=== PATIENT | male | born 1945 | race American Indian/Alaskan Native ===

== ENCOUNTER 2018-12-13 05:03 | Inpatient (IN) | payer MEDICARE, OTHER ==
--- NOTE | 2018-12-13 05:35 | Event Note ---
Date: 12/13/18 Medical screening examination: 73-year-old gentleman, presenting with slurred speech and facial droop for 2 days. Walks with a steady gait. Makes no complaint of pain. Accu-Chek appropriate. Patient was worked up according to stroke protocol. CT scan, laboratory studies, EKG ordered. Vital Signs 12/13/18 12/13/18 05:06 05:25 Temperature 98 F Pulse Rate 78 83 Respiratory 18 18 Rate Blood Pressure 168/98 Blood Pressure 167/98 [Left] O2 Sat by Pulse 97 99 Oximetry
[2018-12-13 05:46] LABS: Basophils % (Auto) 0.8 % (0.0-1.8); Eosinophils # (Auto) 0.2 K/mm3 (0.0-0.4); Eosinophils % (Auto) 3.1 % (0.0-4.3); Hematocrit 42.1 % (35.5-45.6); Hemoglobin 13.9 gm/dl (11.8-15.2); Lymphocytes # (Auto) 1.4 K/mm3 (1.2-5.4); Lymphocytes % (Auto) 25.4 % (13.4-35.0); Mean Corpuscular HGB Conc 33 % (32-34); Mean Corpuscular Volume 81 fl (84-94); Monocytes # (Auto) 0.5 K/mm3 (0.0-0.8); Monocytes % (Auto) 10.2 % (0.0-7.3); Platelet Count 164 K/mm3 (140-440); Red Cell Distribution Width 15.4 % (13.2-15.2)
[2018-12-13 05:57] LABS: INR 0.93 (0.87-1.13)
[2018-12-13 05:58] LABS: BUN/Creatinine Ratio 14; Blood Urea Nitrogen 15 mg/dL (9-20); Calcium 9.2 mg/dL (8.4-10.2); Hemolysis Index 3; Partial Thromboplastin Time 26.5 Sec. (24.2-36.6)
--- NOTE | 2018-12-13 06:33 | Cat Scan Report ---
CT head/brain wo con INDICATION / CLINICAL INFORMATION: neuro deficits <6hrs or sx present upon awakening. TECHNIQUE: All CT scans at this location are performed using CT dose reduction for ALARA by means of automated e xposure control. COMPARISON: None available. FINDINGS: No acute intracranial hemorrhage. A poorly defined low-density areas seen in the left basal ganglia. No associated mass effect. A small well-defined low-density area is seen in the right caudate nucleus. The ventricular system and basilar cisterns are normal. No finding to suggest territorial infarction. A retention cyst is seen in the floor the right maxillary sinus and there is a opacification of the r ight side of the sphenoid sinus. No osseous abnormality. IMPRESSION: 1. Left basal ganglial-hypoattenuation is consistent with age indeterminate ischemia. 2. Small lacunar infarction in the right caudate nucleus. 3. Right maxillary and sphenoid sinus disease. Signer Name: Travis Norris MD Signed: 12/13/2018 6:29 AM Workstation Name: [id number]
--- NOTE | 2018-12-13 07:06 | Emergency Department Report ---
ED Neuro Deficit HPI - General Chief Complaint: Neuro Symptoms/Deficit Stated Complaint: SLURRED SPEECH WEAKNESS Time Seen by Provider: 12/13/18 06:56 Source: patient Mode of arrival: Ambulatory Limitations: No Limitations - History of Present Illness Initial Comments: Patient is 73 years old male with history of hypertension. Patient brought to the emergency room by his family for evaluation of slurred speech and left facial droop for the last 2 days. Family stated that when they came back from [place] they noticed that his speech is not clear at and to somewhat slurred and they also noticed a facial droop on the left side. Patient is alert, oriented 3 in no acute distress. Patient denied any headache, weakness, numbness or tingling sensation. He admitted that he feel that his speech is not normal. Patient denied any chest pain, shortness of breath, abdominal pain, nausea or vomiting. -: days(s) (2) Location: speech, left face Presenting Symptoms: Present: Facial Droop/Numbness, Unable to Speak Clearly History of same: No Place: home Severity: mild Context: sudden onset Associated Symptoms: denies other symptoms Treatments Prior to Arrival: none - Related Data Allergies/Adverse Reactions: Allergies Allergy/AdvReac Type Severity Reaction Status Date / Time Penicillins Allergy Shortness Unverified 10/03/15 06:50 of Breath ED Review of Systems ROS: Stated complaint: SLURRED SPEECH WEAKNESS Other details as noted in HPI Comment: All other systems reviewed and negative Constitutional: denies: chills, fever Respiratory: denies: cough Cardiovascular: denies: chest pain, palpitations Gastrointestinal: denies: abdominal pain, nausea, vomiting Musculoskeletal: denies: back pain Neurological: denies: headache, weakness, numbness, paresthesias, confusion, abnormal gait ED Past Medical Hx - Past Medical History Previous Medical History?: Yes Hx Hypertension: Yes - Surgical History Past Surgical History?: Yes Additional Surgical History: back surgery - Social History Smoking Status: Current Every Day Smoker ED Neuro Physical Exam - General Limitations: No Limitations General appearance: alert, in no apparent distress Suspected Stroke: Yes - Head Head exam: Present: atraumatic, normocephalic, normal inspection - Eye Eye exam: Present: normal appearance - ENT ENT exam: Present: normal exam, normal orophraynx, mucous membranes moist - Neck Neck exam: Present: normal inspection, full ROM. Absent: tenderness, meningismus, lymphadenopathy, thyromegaly - Respiratory Respiratory exam: Present: normal lung sounds bilaterally - Cardiovascular Cardiovascular Exam: Present: regular rate, normal rhythm, normal heart sounds - GI/Abdominal GI/Abdominal exam: Present: soft, normal bowel sounds. Absent: distended, tenderness, guarding, rebound, rigid - Extremities Exam Extremities exam: Present: normal inspection, full ROM, normal capillary refill - Back Exam Back exam: Present: normal inspection, full ROM. Absent: CVA tenderness (R), CVA tenderness (L), muscle spasm, paraspinal tenderness, vertebral tenderness - Neurological Exam Neurological exam: Present: alert, oriented X3, normal gait, reflexes normal. Absent: abnormal gait, motor sensory deficit - NIHSS Assessment Interval: Baseline 1a. Level of Consciousness: alert/keenly responsive 1b. LOC Questions: answers both correctly 1c. LOC Commands: performs tasks correctly 2. Best Gaze: normal 3. Visual: no visual loss 4. Facial Palsy: minor paralysis 5b. Motor Arm Right: no drift 5a. Motor Arm Left: no drift 6a. Motor Leg Left: no drift 6b. Motor Leg Right: no drift 7. Limb Ataxia: absent 8. Sensory: normal 9. Best Language: mild/moderate aphasia 10. Dysarthria: mild/moderate dysarthria 11. Extinction/Inattention: no abnormality Total Score: 3 Stroke Severity: Minor Stroke - Psychiatric Psychiatric exam: Present: normal mood - Skin Skin exam: Present: warm, intact, normal color ED Course Vital Signs 12/13/18 12/13/18 12/13/18 05:06 05:08 05:25 Temperature 98 F 98.0 F Pulse Rate 78 78 83 Respiratory 18 18 18 Rate Blood Pressure 168/98 168/98 Blood Pressure 167/98 [Left] O2 Sat by Pulse 97 97 99 Oximetry 12/13/18 12/13/18 12/13/18 05:30 06:00 06:15 Temperature Pulse Rate 76 71 74 Respiratory 17 20 20 Rate Blood Pressure 167/98 139/78 147/86 Blood Pressure [Left] O2 Sat by Pulse 99 99 96 Oximetry 12/13/18 07:10 Temperature Pulse Rate 71 Respiratory 16 Rate Blood Pressure Blood Pressure 134/73 [Left] O2 Sat by Pulse 97 Oximetry - Lab Data Result diagrams: 12/13/18 05:34 12/13/18 05:34 Lab Results 12/13/18 12/13/18 12/13/18 Range/Units 05:19 05:34 05:34 WBC 5.4 (4.5-11.0) K/mm3 RBC 5.20 H (3.65-5.03) M/mm3 Hgb 13.9 (11.8-15.2) gm/dl Hct 42.1 (35.5-45.6) % MCV 81 L (84-94) fl MCH 27 L (28-32) pg MCHC 33 (32-34) % RDW 15.4 H (13.2-15.2) % Plt Count 164 (140-440) K/mm3 Lymph % (Auto) 25.4 (13.4-35.0) % Clay % (Auto) 10.2 H (0.0-7.3) % Eos % (Auto) 3.1 (0.0-4.3) % Baso % (Auto) 0.8 (0.0-1.8) % Lymph # 1.4 (1.2-5.4) K/mm3 Clay # 0.5 (0.0-0.8) K/mm3 Eos # 0.2 (0.0-0.4) K/mm3 Baso # 0.0 (0.0-0.1) K/mm3 Seg Neutrophils % 60.5 (40.0-70.0) % Seg Neutrophils # 3.2 (1.8-7.7) K/mm3 PT 12.2 (12.2-14.9) Sec. INR 0.93 (0.87-1.13) APTT 26.5 (24.2-36.6) Sec. Thrombin Time (15.1-19.6) Sec. Sodium (137-145) mmol/L Potassium (3.6-5.0) mmol/L Chloride (98-107) mmol/L Carbon Dioxide (22-30) mmol/L Anion Gap mmol/L BUN (9-20) mg/dL Creatinine (0.8-1.5) mg/dL Estimated GFR ml/min BUN/Creatinine Ratio % Glucose (75-100) mg/dL POC Glucose 98 (70-105) Calcium (8.4-10.2) mg/dL Troponin T (0.00-0.029) ng/mL 12/13/18 12/13/18 Range/Units 05:34 05:34 WBC (4.5-11.0) K/mm3 RBC (3.65-5.03) M/mm3 Hgb (11.8-15.2) gm/dl Hct (35.5-45.6) % MCV (84-94) fl MCH (28-32) pg MCHC (32-34) % RDW (13.2-15.2) % Plt Count (140-440) K/mm3 Lymph % (Auto) (13.4-35.0) % Clay % (Auto) (0.0-7.3) % Eos % (Auto) (0.0-4.3) % Baso % (Auto) (0.0-1.8) % Lymph # (1.2-5.4) K/mm3 Clay # (0.0-0.8) K/mm3 Eos # (0.0-0.4) K/mm3 Baso # (0.0-0.1) K/mm3 Seg Neutrophils % (40.0-70.0) % Seg Neutrophils # (1.8-7.7) K/mm3 PT (12.2-14.9) Sec. INR (0.87-1.13) APTT (24.2-36.6) Sec. Thrombin Time 16.9 (15.1-19.6) Sec. Sodium 141 (137-145) mmol/L Potassium 3.6 (3.6-5.0) mmol/L Chloride 106.7 (98-107) mmol/L Carbon Dioxide 22 (22-30) mmol/L Anion Gap 16 mmol/L BUN 15 (9-20) mg/dL Creatinine 1.1 (0.8-1.5) mg/dL Estimated GFR > 60 ml/min BUN/Creatinine Ratio 14 % Glucose 109 H (75-100) mg/dL POC Glucose (70-105) Calcium 9.2 (8.4-10.2) mg/dL Troponin T < 0.010 (0.00-0.029) ng/mL - EKG Data -: EKG Interpreted by Ca EKG shows normal: sinus rhythm Rate: normal Interpretation: no acute changes - Radiology Data Radiology results: report reviewed - Medical Decision Making Patient is 73 years old male with history of hypertension. Patient brought to the emergency room by his family for evaluation of slurred speech and left facial droop for the last 2 days. Family stated that when they came back from [place] they noticed that his speech is not clear at and to somewhat slurred and they also noticed a facial droop on the left side. Patient is alert, oriented 3 in no acute distress. Patient denied any headache, weakness, numbness or tingling sensation. He admitted that he feel that his speech is not normal. Patient denied any chest pain, shortness of breath, abdominal pain, nausea or vomiting. CT brain showed no acute finding. EKG is sinus rhythm. Labs reviewed that is unremarkable. Unfortunately patient missed a TPA since he presented after 2 days. I discussed the patient with Dr. Kelley, he agreed to admit the patient to medical service for further management. Critical Care Time: Yes Critical care time in (mins) excluding proc time.: 30 Critical care attestation.: If time is entered above; I have spent that time in minutes in the direct care of this critically ill patient, excluding procedure time. ED Disposition Clinical Impression: CVA (cerebral vascular accident) Disposition: DC-09 OP ADMIT IP TO THIS HOSP Is pt being admited?: Yes Condition: Stable Referrals: PRIMARY CARE, [Primary Care Provider] - 3-5 Days
[2018-12-13] MEDS ORDERED: SENOKOT PO PRN (08:17)
[2018-12-13] MEDS ORDERED: PROVENTIL IH PRN (08:17)
[2018-12-13] MEDS ORDERED: MILK OF MAGNESIA PO PRN (08:17)
[2018-12-13] MEDS ORDERED: SODIUM CHLORIDE FLUSH SYRINGE 10 ML IV PRN ×2 (08:17)
[2018-12-13] MEDS ORDERED: REGLAN PO PRN (08:17)
[2018-12-13] MEDS ORDERED: ZOFRAN IV PRN ×2 (08:17)
[2018-12-13] MEDS ORDERED: DULCOLAX PR PRN (08:17)
[2018-12-13] MEDS ORDERED: TYLENOL PO PRN ×2 (08:17)
[2018-12-13] MEDS ORDERED: PHENERGAN PR PRN (08:17)
--- NOTE | 2018-12-13 08:17 | History and Physical Report ---
History of Present Illness Date of examination: 12/13/18 Date of admission: 12/13/18 Chief complaint: slurred speech with left facail droop for 2 days History of present illness: Patient is a 73-year-old male with past medical history of hypertension, tobacco dependence, hyperlipidemia on daily aspirin who presents to the ED with complaints of slurred speech and left facial droop for about 2 days. The family brought the patient and reports that they had traveled for the weekend and on return from [place] noted that the patient's speech was not clear somewhat slurred and had a facial droop to the left side. The patient reports that he woke up on Tuesday morning with this symptom and I went back to sleep thinking that it will go away but he persisted. Heunsure why he did not call emergency services or any family member. He denies any chest pain, nausea, vomiting, dizziness, seizures. Past History Past Medical History: hypertension, hyperlipidemia Past Surgical History: Other (BACK SURGERY) Social history: smoking, full code. denies: alcohol abuse Family history: no significant family history Medications and Allergies Allergies Allergy/AdvReac Type Severity Reaction Status Date / Time Penicillins Allergy Shortness Verified 12/13/18 08:29 of Breath Home Medications Medication Instructions Recorded Confirmed Last Taken Type Aspirin BABY CHEW TAB 81 mg PO ONCE 12/13/18 12/13/18 12/12/18 History 81 mg Lipitor 40 mg PO ONCE 12/13/18 12/13/18 12/12/18 History 40 mg amLODIPine 10 mg PO ONCE 12/13/18 12/13/18 12/12/18 History 10 mg Review of Systems All systems: negative Constitutional: weakness, no weight loss, no weight gain, no fever, no chills, no sweats, no night sweats, no anorexia, no fatigue, no malaise, no lethargy, no chronic headaches, no poor appetite, no daytime sleepiness, no chronic pain Cardiovascular: no chest pain, no orthopnea, no palpitations, no rapid/irregular heart beat, no edema, no syncope, no lightheadedness, no shortness of breath Respiratory: no cough, no cough with sputum, no excessive sputum, no hemoptysis, no shortness of breath, no dyspnea on exertion Gastrointestinal: no abdominal pain, no nausea, no vomiting, no diarrhea, no constipation, no change in bowel habits, no hematemesis, no hematochezia, no early satiety Musculoskeletal: muscle weakness (RIGHT SIDE), muscle cramps, no neck pain, no shooting arm pain, no arm numbness/tingling, no leg numbness/tingling, no gait dysfunction Integumentary: no rash, no pruritis, no redness, no sores, no jaundice Neurological: weakness (LEFT FACIAL DROOP), aphasia, change in speech, gait dysfunction, sensory deficit, no paralysis, no parathesias, no numbness, no tingling, no seizures, no change in mentation, no confusion, no memory loss, no changes in smell/taste, no double vision, no loss of vision, no hearing difficulties Exam - Physical Exam Narrative exam: VITAL SIGNS: Reviewed. GENERAL: The patient appears normally developed, Vital signs as documented. HEAD: No signs of head trauma. EYES: Pupils are equal. Extraocular motions intact. EARS: Hearing grossly intact. MOUTH: Oropharynx is normal. left facial droop NECK: No adenopathy, no JVD. CHEST: Chest with clear breath sounds bilaterally. No wheezes, rales, or rhonchi. CARDIAC: Regular rate and rhythm. S1 and S2, without murmurs, gallops, or rubs . VASCULAR: No Edema. Peripheral pulses normal and equal in all extremities. ABDOMEN: Soft, non tender and non distended. No rebound or guarding, and no masses palpated. Bowel Sounds normal. MUSCULOSKELETAL: Good range of motion of all major joints. Extremities without clubbing, cyanosis or edema. NEUROLOGIC EXAM: Alert and oriented x 3 Slurred speech, left facial droop, no motor strenght deficit noted. Speech normal. Follows commands. PSYCHIATRIC: Mood normal. SKIN: detail exam as documented in skin assessment - Constitutional Vitals: Temp Pulse Resp BP Pulse Ox 98.0 F 71 16 134/73 97 12/13/18 05:08 12/13/18 07:10 12/13/18 07:10 12/13/18 07:10 12/13/18 07:10 Results - Labs CBC & Chem 7: 12/13/18 05:34 12/13/18 05:34 Labs: Laboratory Last Values WBC 5.4 K/mm3 (4.5-11.0) 12/13/18 05:34 RBC 5.20 M/mm3 (3.65-5.03) H 12/13/18 05:34 Hgb 13.9 gm/dl (11.8-15.2) 12/13/18 05:34 Hct 42.1 % (35.5-45.6) 12/13/18 05:34 MCV 81 fl (84-94) L 12/13/18 05:34 MCH 27 pg (28-32) L 12/13/18 05:34 MCHC 33 % (32-34) 12/13/18 05:34 RDW 15.4 % (13.2-15.2) H 12/13/18 05:34 Plt Count 164 K/mm3 (140-440) 12/13/18 05:34 Lymph % (Auto) 25.4 % (13.4-35.0) 12/13/18 05:34 Swain % (Auto) 10.2 % (0.0-7.3) H 12/13/18 05:34 Eos % (Auto) 3.1 % (0.0-4.3) 12/13/18 05:34 Baso % (Auto) 0.8 % (0.0-1.8) 12/13/18 05:34 Lymph # 1.4 K/mm3 (1.2-5.4) 12/13/18 05:34 Swain # 0.5 K/mm3 (0.0-0.8) 12/13/18 05:34 Eos # 0.2 K/mm3 (0.0-0.4) 12/13/18 05:34 Baso # 0.0 K/mm3 (0.0-0.1) 12/13/18 05:34 Seg Neutrophils % 60.5 % (40.0-70.0) 12/13/18 05:34 Seg Neutrophils # 3.2 K/mm3 (1.8-7.7) 12/13/18 05:34 PT 12.2 Sec. (12.2-14.9) 12/13/18 05:34 INR 0.93 (0.87-1.13) 12/13/18 05:34 APTT 26.5 Sec. (24.2-36.6) 12/13/18 05:34 Thrombin Time 16.9 Sec. (15.1-19.6) 12/13/18 05:34 Sodium 141 mmol/L (137-145) 12/13/18 05:34 Potassium 3.6 mmol/L (3.6-5.0) 12/13/18 05:34 Chloride 106.7 mmol/L (98-107) 12/13/18 05:34 Carbon Dioxide 22 mmol/L (22-30) 12/13/18 05:34 Anion Gap 16 mmol/L 12/13/18 05:34 BUN 15 mg/dL (9-20) 12/13/18 05:34 Creatinine 1.1 mg/dL (0.8-1.5) 12/13/18 05:34 Estimated GFR > 60 ml/min 12/13/18 05:34 BUN/Creatinine Ratio 14 % 12/13/18 05:34 Glucose 109 mg/dL (75-100) H 12/13/18 05:34 POC Glucose 98 (70-105) 12/13/18 05:19 Calcium 9.2 mg/dL (8.4-10.2) 12/13/18 05:34 Troponin T < 0.010 ng/mL (0.00-0.029) 12/13/18 05:34 Assessment and Plan Assessment and plan: Patient is a 73-year-old male with past medical history of hypertension, tobacco dependence, hyperlipidemia on daily aspirin who presents to the ED with complaints of slurred speech and left facial droop for about 2 days. The family brought the patient and reports that they had traveled for the weekend and on return from [place] noted that the patient's speech was not clear somewhat slurred and had a facial droop to the left side. The patient reports that he woke up on Tuesday morning with this symptom and I went back to sleep thinking that it will go away but he persisted. Heunsure why he did not call emergency services or any family member. He denies any chest pain, nausea, vomiting, dizziness, seizures. * CT brain showed no acute finding but lacunar infarct noted, unknown chronicity. EKG is sinus rhythm. * Unfortunately patient missed a TPA since he presented after 2 days. Acute CVA HTN Hyperlipidemia Tobacco dependance Obese Plan Admit to Telemetry Neurology consult Extensive counselling on tobacco cessation provided to the patient Speech, PT/OT consult Continue Full dose ASA, Statin, BP control DVT/GI Prophy Discussed with patient and family Advance Directives: Yes Plan of care discussed with patient/family: Yes
[2018-12-13] MEDS ORDERED: ASPIRIN PO SCH (10:00)
[2018-12-13] MEDS: SODIUM CHLORIDE FLUSH SYRINGE 10 ML IV SCH ×2 (10:13→22:06)
--- NOTE | 2018-12-13 10:20 | Cat Scan Report ---
CTA head with and without IV contrast. CLINICAL HISTORY: Cerebrovascular accident. Technique: Multiple contiguous postcontrast CT images of the head were obtained at 0.63 mm intervals. 3 plane MIP reconstructions were obtained. Precontrast localizing images were also performed. CT scan s at this location are performed using the CT dose reduction for ALATechgenia by means of automated exposure control. FINDINGS: The intracranial vessels demonstrate appropriate caliber without significant focal stenosis by NASCET criteria. There is no CTA evidence of intracranial aneurysm. The dural venous sinuses opac kaelyn with contrast. There is a focus of decreased attenuation projected along the left palmer radiata indicative of ische mack process of indeterminate age. There is prominent mucosal thickening within the right sphenoid sin us. There is also mild mucosal thickening along the visualized inferior left maxillary sinus. A reten tion cyst is noted within the right maxillary sinus. IMPRESSION: There is no significant focal stenosis involving intracranial vessels at. Signer Name: Jefferson Puga MD Signed: 12/13/2018 10:15 AM Workstation Name: [id number]
--- NOTE | 2018-12-13 10:41 | Cat Scan Report ---
CTA neck with and without contrast CLINICAL HISTORY: Cerebrovascular accident. Technique: Multiple contiguous postcontrast axial CT images of the neck were obtained at 0.63 mm inte rvals. 3 plane MIP reconstructions were produced. Precontrast localizing images were also performed. All CT scans at this location are performed using the CT dose reduction for ALARA by means of automat ed exposure control. There was some technical delay in processing of these images. FINDINGS: The carotid bifurcations are widely patent at. The somewhat symmetric linear decreased atte nuation projected along the proximal carotid bulbs is felt to reflect motion artifact in turbulent fl ow. The findings are not clearly a seen on the reconstructed images at. The cervical internal carotid arteries also demonstrate appropriate caliber without significant focal narrowing. The vertebral arteries also reveal appropriate caliber without second focal stenosis at. The left sofia tebral artery is dominant. There is beam hardening related to the adjacent dense contrast within the venous structures. However, there is no clear evidence of significant stenosis involving the arch of vessels. There are fibrotic changes within the visualized lung apices bilaterally. IMPRESSION: There is no significant stenosis involving cervical carotid or vertebral arteries by NASCET criteria. Signer Name: Jefferson Puga MD Signed: 12/13/2018 10:36 AM Workstation Name: [id number]
[2018-12-13] MEDS: HEPARIN SUB-Q SCH ×2 (13:37→22:06)
[2018-12-13] MEDS ORDERED: ATIVAN IV NR (14:45)
--- NOTE | 2018-12-13 18:01 | Consultation ---
History of Present Illness Consult date: 12/13/18 Chief complaint: left sided weakness History of present illness: This is a 73 YO M who presented to the ED with left sided weakness. PT takes aspirin daily, reports compliance. Also had some slurred speech. Seems to be back to normal. Past History Past Medical History: hypertension, hyperlipidemia Past Surgical History: Other (BACK SURGERY) Social history: smoking, full code. denies: alcohol abuse Family history: no significant family history Medications and Allergies Allergies Allergy/AdvReac Type Severity Reaction Status Date / Time Penicillins Allergy Shortness Verified 12/13/18 08:29 of Breath Home Medications Medication Instructions Recorded Confirmed Last Taken Type Aspirin BABY CHEW TAB 81 mg PO ONCE 12/13/18 12/13/18 12/12/18 History 81 mg Lipitor 40 mg PO ONCE 12/13/18 12/13/18 12/12/18 History 40 mg amLODIPine 10 mg PO ONCE 12/13/18 12/13/18 12/12/18 History 10 mg Active Meds: Active Medications Acetaminophen (Tylenol) 650 mg PO Q4H PRN PRN Reason: Pain MILD(1-3)/Fever >100.5/CAGLE Albuterol (Proventil) 2.5 mg IH Q3HRT PRN PRN Reason: Shortness Of Breath Aspirin (Aspirin) 325 mg PO QDAY [facility] Last Admin: 12/13/18 10:13 Dose: 325 mg Documented by: Atorvastatin Calcium (Lipitor) 40 mg PO QHS JESUS Bisacodyl (Dulcolax) 10 mg MI QDAY PRN PRN Reason: Constipation Heparin Sodium (Porcine) (Heparin) 5,000 unit SUB-Q Q8HR [facility] Last Admin: 12/13/18 13:37 Dose: 5,000 unit Documented by: Lorazepam (Ativan) 2 mg IV [employer] NR Stop: 12/13/18 23:59 Last Admin: 12/13/18 17:43 Dose: 2 mg Documented by: Magnesium Hydroxide (Milk Of Magnesia) 30 ml PO Q4H PRN PRN Reason: Constipation Metoclopramide HCl (Reglan) 10 mg PO Q6H PRN PRN Reason: Nausea And Vomiting Ondansetron HCl (Zofran) 4 mg IV Q8H PRN PRN Reason: Nausea And Vomiting Promethazine HCl (Phenergan) 25 mg MI Q6H PRN PRN Reason: Nausea And Vomiting Senna (Senokot) 8.6 mg PO Q12H PRN PRN Reason: Laxative Effect Sodium Chloride (Sodium Chloride Flush Syringe 10 Ml) 10 ml IV PRN PRN PRN Reason: LINE FLUSH Sodium Chloride (Sodium Chloride Flush Syringe 10 Ml) 10 ml IV BID JESUS Last Admin: 12/13/18 10:13 Dose: 10 ml Documented by: Review of Systems Neurological: weakness, change in speech Physical Examination - Vital Signs Vital Signs: Vital Signs Temp Pulse Resp BP Pulse Ox 98 F 78 18 168/98 97 12/13/18 05:06 12/13/18 05:06 12/13/18 05:06 12/13/18 05:06 12/13/18 05:06 - Constitutional General appearance: comfortable - EENT EENT: Present: PERRL - Respiratory Respiratory: Present: lungs clear - Cardiovascular Cardiovascular: Present: regular rate - Gastrointestinal Gastrointestinal: Present: normoactive bowel sounds - Integumentary Integumentary: Present: normal - Neurologic Cranial nerve examination: PERRL, face symmetric, tongue midline Speech examination: intact Sensorimotor examination: intact Detailed motor examination: grossly full strength in Reflex and gait examination: intact Reflexes: 1+: ankle, bicep, knee, tricep - Psychiatric Psychiatric: Present: mood/affect appropriate Results - Laboratory Findings CBC and BMP: 12/13/18 05:34 12/13/18 05:34 Abnormal Lab Findings: Abnormal Labs 12/13/18 12/13/18 05:34 05:34 RBC 5.20 H MCV 81 L MCH 27 L RDW 15.4 H Jennings % (Auto) 10.2 H Glucose 109 H - Diagnostic Findings Additional findings: CT head nothing acute Assessment and Plan This is a 73 YO M with slurred speech and left sided weakness, appears to be at baseline.' REcommend: MRI/A echo and carotids PT/OT/ST plavix and statin LDL and A1C Continue care for all medical issues as you are doing
--- NOTE | 2018-12-13 20:48 | Magnetic Resonance Report ---
Nonenhanced MR scan of the brain: INDICATION / CLINICAL INFORMATION: stroke. TECHNIQUE: Multiplanar, multisequence MR images of the brain were obtained. COMPARISON: None available. FINDINGS: Abnormal MRI scan. BRAIN / INTRACRANIAL CONTENTS: Left basal ganglia infarction is seen extending from the posterior jaimes b of left internal capsule through the palmer radiata towards the body of left caudate. This infarcti on is more than 8 hours old (increased FLAIR and T2 signal intensities) but less than 3 days old (low ADC values). In the gradient echo images, I do not see susceptibility changes. This would exclude he morrhagic changes. In the FLAIR and T2-weighted images, subtle chronic ischemic changes are seen in the left side of feliciano s. Medulla and midbrain are normal. Cerebellar hemispheres are normal. In the cerebral hemispheres, symmetric confluent deep hemispheric white matter hyperintensities seen. If there is history of hypertension, this finding could suggest subcortical arteriosclerosis. CRANIOCERVICAL JUNCTION: No significant abnormality. VASCULAR FLOW-VOIDS: No significant abnormality. ORBITS: No significant abnormality of visualized orbits. SINUSES / MASTOIDS: Mucosal thickening is seen to significant degree on the right sphenoid sinus. Muc ous retention cysts are seen in the maxillary sinuses. ADDITIONAL FINDINGS: Degenerative changes are seen in both temporomandibular joints. IMPRESSION: 1. Subacute infarction in the left basal ganglia Signer Name: Janeth Hernadez MD Signed: 12/13/2018 8:44 PM Workstation Name: [id number]
--- NOTE | 2018-12-13 20:54 | Magnetic Resonance Report ---
MRA HEAD WITHOUT CONTRAST HISTORY: TIA. COMPARISON: CTA head 12/13/2018. TECHNIQUE: Routine MRA of the head performed. 3-D/MIP reformats postprocessed. CONTRAST: none FINDINGS: MRA HEAD: This study is limited by patient motion artifact. OVERVIEW: There is no evidence of intracranial stenosis or large vessel occlusion. There is no eviden ce of aneurysm or other vascular malformation. Intracranial vertebral arteries: Left vertebral artery is dominant. Both vertebral arteries contribut e to the basilar artery origin. Basilar artery: Basilar artery has a normal appearance. Posterior cerebral arteries: No significant abnormality. Incidental note is made of large posterior c ommunicating arteries bilaterally. Intracranial internal carotid arteries: Petrous, cavernous and supraclinoid segments of the internal carotid arteries all have a normal appearance. Anterior cerebral arteries: No significant abnormality. Middle cerebral arteries: No significant abnormality. Additional findings: None. IMPRESSION: 1. Limited study secondary to patient motion artifact. 2. No abnormality. No interval change since CTA head performed 12/13/2018 at about 0850 hours. Signer Name: Anand Fan MD Signed: 12/13/2018 8:49 PM Workstation Name: [id number]
[2018-12-14] MEDS: HEPARIN SUB-Q SCH (05:20)
[2018-12-14 05:33] LABS: Hematocrit 42.2 % (35.5-45.6); Hemoglobin 14.2 gm/dl (11.8-15.2); Mean Corpuscular HGB Conc 34 % (32-34); Mean Corpuscular Volume 81 fl (84-94); Platelet Count 162 K/mm3 (140-440); Red Cell Distribution Width 15.1 % (13.2-15.2)
[2018-12-14 05:46] LABS: BUN/Creatinine Ratio 12; Blood Urea Nitrogen 12 mg/dL (9-20); Chol/HDL Ratio 5.02 %; HDL Cholesterol 36 mg/dL (40-59); Hemolysis Index 6; LDL Cholesterol,Direct 134 mg/dL (50-130)
--- NOTE | 2018-12-14 07:42 | Progress Note ---
Assessment and Plan - Patient Problems (1) Hypertension Current Visit: Yes Status: Acute Plan to address problem: restart amlodipine will add second agent if needed (2) Hyperlipemia Current Visit: Yes Status: Acute Plan to address problem: continue statin dietary counseling (3) CVA (cerebral vascular accident) Current Visit: Yes Status: Acute Plan to address problem: CT,CTA, MRI, MRA done and reviewed MRI shows subacute infarct in left basal ganglia old ischemic changes seen manage HTN, will restart amlodipine pt on statin, started on plavix PT, OT, GROUNDS PERSON ordered (4) Aphasia due to acute cerebrovascular accident (CVA) Current Visit: Yes Status: Acute Plan to address problem: patient reporting expressive aphasia speech consult in place History Interval history: Patient is 73 year old male who presents with slurred speech and left facial droop for 2 days. Has history of HTN, HPL, and tobacco use. Hospitalist Physical - Physical exam Narrative exam: Patient in bed, feels well. Reporting difficulty with speaking and finding wor ds. - Constitutional Vitals: Temp Pulse Resp BP Pulse Ox 98.2 F 65 16 168/88 99 12/14/18 03:38 12/14/18 03:38 12/14/18 03:38 12/14/18 03:38 12/14/18 03:38 General appearance: Present: well-nourished - EENT Eyes: Present: PERRL, EOM intact ENT: other (left facial droop ) - Respiratory Respiratory effort: normal Respiratory: bilateral: CTA - Cardiovascular Rhythm: regular Heart Sounds: Present: S1 & S2 - Extremities Extremities: pulses intact, No edema, Full ROM Peripheral Pulses: within normal limits - Abdominal General gastrointestinal: soft, non-tender - Integumentary Integumentary: Present: clear, warm, dry - Psychiatric Psychiatric: appropriate mood/affect, intact judgment & insight, memory intact - Neurologic Neurologic: moves all extremities, other (left facial droop. tongue deviates right) Results - Labs CBC & Chem 7: 12/14/18 04:49 12/14/18 04:49 Labs: Laboratory Last Values WBC 3.9 K/mm3 (4.5-11.0) L 12/14/18 04:49 RBC 5.20 M/mm3 (3.65-5.03) H 12/14/18 04:49 Hgb 14.2 gm/dl (11.8-15.2) 12/14/18 04:49 Hct 42.2 % (35.5-45.6) 12/14/18 04:49 MCV 81 fl (84-94) L 12/14/18 04:49 MCH 27 pg (28-32) L 12/14/18 04:49 MCHC 34 % (32-34) 12/14/18 04:49 RDW 15.1 % (13.2-15.2) 12/14/18 04:49 Plt Count 162 K/mm3 (140-440) 12/14/18 04:49 Lymph % (Auto) 25.4 % (13.4-35.0) 12/13/18 05:34 Thomas % (Auto) 10.2 % (0.0-7.3) H 12/13/18 05:34 Eos % (Auto) 3.1 % (0.0-4.3) 12/13/18 05:34 Baso % (Auto) 0.8 % (0.0-1.8) 12/13/18 05:34 Lymph # 1.4 K/mm3 (1.2-5.4) 12/13/18 05:34 Thomas # 0.5 K/mm3 (0.0-0.8) 12/13/18 05:34 Eos # 0.2 K/mm3 (0.0-0.4) 12/13/18 05:34 Baso # 0.0 K/mm3 (0.0-0.1) 12/13/18 05:34 Seg Neutrophils % 60.5 % (40.0-70.0) 12/13/18 05:34 Seg Neutrophils # 3.2 K/mm3 (1.8-7.7) 12/13/18 05:34 PT 12.2 Sec. (12.2-14.9) 12/13/18 05:34 INR 0.93 (0.87-1.13) 12/13/18 05:34 APTT 26.5 Sec. (24.2-36.6) 12/13/18 05:34 Thrombin Time 16.9 Sec. (15.1-19.6) 12/13/18 05:34 Sodium 140 mmol/L (137-145) 12/14/18 04:49 Potassium 4.1 mmol/L (3.6-5.0) 12/14/18 04:49 Chloride 103.4 mmol/L (98-107) 12/14/18 04:49 Carbon Dioxide 23 mmol/L (22-30) 12/14/18 04:49 Anion Gap 18 mmol/L 12/14/18 04:49 BUN 12 mg/dL (9-20) 12/14/18 04:49 Creatinine 1.0 mg/dL (0.8-1.5) 12/14/18 04:49 Estimated GFR > 60 ml/min 12/14/18 04:49 BUN/Creatinine Ratio 12 % 12/14/18 04:49 Glucose 105 mg/dL (75-100) H 12/14/18 04:49 POC Glucose 98 (70-105) 12/13/18 05:19 Calcium 9.0 mg/dL (8.4-10.2) 12/14/18 04:49 Troponin T < 0.010 ng/mL (0.00-0.029) 12/13/18 05:34 Triglycerides 96 mg/dL (2-149) 12/14/18 04:49 Cholesterol 181 mg/dL (50-199) 12/14/18 04:49 LDL Cholesterol Direct 134 mg/dL (50-130) H 12/14/18 04:49 HDL Cholesterol 36 mg/dL (40-59) L 12/14/18 04:49 Cholesterol/HDL Ratio 5.02 % 12/14/18 04:49 - Imaging and Cardiology CT Scan - head: report reviewed MRI - head: report reviewed Active Medications - Current Medications Current Medications: Generic Name Dose Route Start Last Admin Trade Name Freq PRN Reason Stop Dose Admin Acetaminophen 650 mg 12/13/18 08:17 Tylenol PO Q4H PRN Pain MILD(1-3)/Fever >100.5/CAGLE Albuterol 2.5 mg 12/13/18 08:17 Proventil IH Q3HRT PRN Shortness Of Breath Atorvastatin Calcium 40 mg 12/13/18 22:00 12/13/18 22:06 Lipitor PO Not Given QHS JESUS Bisacodyl 10 mg 12/13/18 08:17 Dulcolax IN QDAY PRN Constipation Clopidogrel Bisulfate 75 mg 12/14/18 10:00 Plavix PO QDAY JESUS Heparin Sodium (Porcine) 5,000 unit 12/13/18 14:00 12/14/18 05:20 Heparin SUB-Q 5,000 unit Q8HR JESUS Administration Magnesium Hydroxide 30 ml 12/13/18 08:17 Milk Of Magnesia PO Q4H PRN Constipation Metoclopramide HCl 10 mg 12/13/18 08:17 Reglan PO Q6H PRN Nausea And Vomiting Ondansetron HCl 4 mg 12/13/18 08:17 Zofran IV Q8H PRN Nausea And Vomiting Promethazine HCl 25 mg 12/13/18 08:17 Phenergan IN Q6H PRN Nausea And Vomiting Senna 8.6 mg 12/13/18 08:17 Senokot PO Q12H PRN Laxative Effect Sodium Chloride 10 ml 12/13/18 08:17 Sodium Chloride Flush Syringe 10 Ml IV PRN PRN LINE FLUSH Sodium Chloride 10 ml 12/13/18 10:00 12/13/18 22:06 Sodium Chloride Flush Syringe 10 Ml IV Not Given BID JESUS
[2018-12-14] MEDS ORDERED: NON-FORMULARY (Amlodipine 10 MG) PO SCH (09:00)
[2018-12-14] MEDS: SODIUM CHLORIDE FLUSH SYRINGE 10 ML IV SCH (09:01)
[2018-12-14] MEDS ORDERED: PLAVIX PO SCH (10:00)
[2018-12-14] MEDS ORDERED: NORVASC PO SCH (11:00)
[2018-12-14 11:30] VITALS: BP 138/86
--- NOTE | 2018-12-14 13:23 | Discharge Summary ---
Providers - Providers Date of Admission: 12/13/18 08:17 Attending physician: MARYCRUZ LEÓN MD 12/13/18 Consult to Physician [CONS] Routine Comment: Consulting Provider: HERB MCINTOSH Physician Instructions: Reason For Exam: CVA 12/13/18 08:17 Consult to Case Management [CONS] Routine Services Needed at Discharge: [employer] Straightener Notified:: case management Consult to Dietitian/Nutrition [CONS] Routine Physician Instructions: Reason For Exam: Reason for Consult: Nutrition Recommendations Reason for Consult: Diet education Occupational Therapy Evaluate and Treat [CONS] Routine Comment: Reason For Exam: Neuro deficits Physical Therapy Evaluation and Treat [CONS] Routine Comment: Reason For Exam: Neuro deficits 12/13/18 15:10 Speech Therapy Evaluation and Treat [CONS] Routine Reason For Exam: SPEECH THERAPY Primary care physician: COMPLIANCE DIRECTOR Hospitalization Condition: Stable Disposition: DC/[place]-06 HOME UNDER HOME HL[facility] Time spent for discharge: 35 mins Exam - Constitutional Vitals: Temp Pulse Resp BP Pulse Ox 97.7 F 73 18 138/86 96 12/14/18 11:29 12/14/18 11:29 12/14/18 11:29 12/14/18 11:29 12/14/18 11:29 Plan Activity: advance as tolerated, fall precautions Diet: low fat, low cholesterol Special Instructions: record daily BP diary, smoking cessation, physical therapy, occupational therapy, other (speech) Follow up with: PRIMARY CARE,MD [Primary Care Provider] - 3-5 Days GIORGIO LYON MD [Staff Physician] - 7 Days Prescriptions: AtorvaSTATin [Lipitor] 40 mg PO QHS #30 tablet amLODIPine [Norvasc] 10 mg PO DAILY #30 tablet Clopidogrel [Plavix] 75 mg PO QDAY #30 tablet
== END 2018-12-14 14:55 | disposition home health service (06) | DRG 66 ==
LOC: ED 05:03 → 4A 08:17
PROVIDERS: ADMIT Internal Medicine; ATTEND Internal Medicine
DX: I63.9 Cerebral infarction, unspecified (principal); F17.200 Nicotine dependence, unspecified, uncomplicated; I10 Essential (primary) hypertension; E78.5 Hyperlipidemia, unspecified; R47.01 Aphasia; R47.81 Slurred speech; R29.703 NIHSS score 3; R29.810 Facial weakness; Z88.0 Allergy status to penicillin; Z79.82 Long term (current) use of aspirin; Z79.899 Other long term (current) drug therapy; Z71.6 Tobacco abuse counseling
CPT/HCPCS: 36415; 70450; 70496; 70498; 70544; 70551; 80048; 80061; 82962; 84484; 85025; 85027; 85610; 85670; 85730; 93005; 93010; 93306; 96374; 99406; G0378; A9270-GY; J1644; J2060; Q9967